=== PATIENT | female | born 1990 | race Caucasian/White ===

== ENCOUNTER 2022-10-29 16:42 | Emergency (ER) | payer OTHER ==
[~2022-10-29] VITALS: Ht 157.5 cm; Wt 74.0 kg
[~2022-10-29 16:42] MED LIST: [UNRECOGNIZED DRUG - REMARK]
[2022-10-29 16:51] VITALS: BP 133/80
[2022-10-29 18:02] LABS: APPEARANCE,URINE SL CLOUDY (CLEAR); BILIRUBIN,URINE NEGATIVE (NEGATIVE); BLOOD, URINE 3+ (NEGATIVE); COLOR,URINE ORANGE (YELLOW); LEUKOCYTE ESTERASE ,URINE 1+ (NEGATIVE); NITRITE, URINE NEGATIVE (NEGATIVE); PH,URINE 5.5 (5.0-9.0); UGLUCOSE NEGATIVE (NEGATIVE)
[2022-10-29 18:02] LABS: BASOPHILS # (AUTO) 0.1 K/uL (0.00-0.22); EOSINOPHILS # (AUTO) 0.1 K/uL (0-0.4); EOSINOPHILS % (AUTO) 1.9 % (0.0-4.0); HEMATOCRIT 36.8 % (36-48); HEMOGLOBIN 12.6 g/dL (12.0-16.0); LYMPHOCYTES # (AUTO) 2.6 K/uL (2.5-16.5); LYMPHOCYTES % (AUTO) 33.3 % (20.5-51.1); MEAN CORPUSCULAR HEMOGLOBIN 30 pg (27-31); MEAN CORPUSCULAR HGB CONC 34 g/dL (33-37); MEAN CORPUSCULAR VOLUME 86.4 fL (80-94); MONOCYTES # (AUTO) 0.6 K/uL (0.8-1.0); MONOCYTES % (AUTO) 7.2 % (1.7-9.3); NEUTROPHILS # (AUTO) 4.4 K/uL (1.8-7.7); NEUTROPHILS % (AUTO) 56.6 % (42.2-75.2); PLATELET COUNT (AUTO) 254 K/uL (140-450); RED BLOOD CELL COUNT(AUTO) 4.26 MIL/uL (4.20-5.40); RED CELL DISTRIBUTION WIDTH 13.3 % (11.6-13.7); WHITE BLOOD COUNT (AUTO) 7.7 K/uL (4.8-10.8)
[2022-10-29 18:16] LABS: ALBUMIN 3.7 g/dL (3.4-5.0); ANION GAP 13.3 (8-16); CARBON DIOXIDE 26.7 mmol/L (21-32); CREATININE 0.6 mg/dL (0.6-1.3); TOTAL BILIRUBIN 0.9 mg/dL (0.0-1.0)
[2022-10-29 18:16] LABS: RBC,URINE 11-20 (MOD) /HPF (0-5); TRICHOMONAS,URINE None Seen /HPF (None Seen); YEAST,URINE None Seen /HPF (None Seen)
[2022-10-29] MEDS ORDERED: OMEP20EC11 PO (18:34)
[2022-10-29] MEDS ORDERED: NITR100C7 PO (18:34)
--- NOTE | 2022-10-29 18:58 | NUR ---
Patient discharged with v/s stable. Written and verbal after care instructions given and explained. Patient alert, oriented and verbalized understanding of instructions. Ambulatory with steady gait. All questions addressed prior to discharge. ID band removed. Patient advised to follow up with PMD. Rx of MACROBID, PRILOSEC given. Patient educated on indication of medication including possible reaction and side effects. Opportunity to ask questions provided and answered.
== END 2022-10-29 18:58 | disposition home or self-care (01) ==
LOC: MED 16:42
DX: N39.0 Urinary tract infection, site not specified (principal); K76.0 Fatty (change of) liver, not elsewhere classified; D35.02 Benign neoplasm of left adrenal gland; K21.9 Gastro-esophageal reflux disease without esophagitis; Z90.49 Acquired absence of other specified parts of digestive tract; Z98.890 Other specified postprocedural states; Z79.899 Other long term (current) drug therapy
CPT/HCPCS: 36415; 80053; 81001; 81025; 83690; 85025; 87086; 99284

== ENCOUNTER 2023-03-20 18:47 | Emergency (ER) | payer OTHER ==
[~2023-03-20] VITALS: Ht 157.5 cm; Wt 75.3 kg
[~2023-03-20 18:47] MED LIST changes: +NITR100C7 PO; +OMEP20EC11 PO
[2023-03-20 19:00] VITALS: BP 120/70; PULSE 63; RESP 18; TEMP 97.5; O2SAT 100
[2023-03-20] MEDS ORDERED: ONDANSETRON 4 MG ODT PO ONE (19:40)
[2023-03-20 20:17] LABS: BASOPHILS # (AUTO) 0.1 K/uL (0.00-0.22); BASOPHILS % (AUTO) 0.5 % (0.0-2.0); EOSINOPHILS # (AUTO) 0.2 K/uL (0-0.4); EOSINOPHILS % (AUTO) 2.1 % (0.0-4.0); HEMATOCRIT 36.3 % (36-48); HEMOGLOBIN 12.5 g/dL (12.0-16.0); LYMPHOCYTES # (AUTO) 4.1 K/uL (2.5-16.5); LYMPHOCYTES % (AUTO) 41.6 % (20.5-51.1); MEAN CORPUSCULAR HEMOGLOBIN 30 pg (27-31); MEAN CORPUSCULAR HGB CONC 34 g/dL (33-37); MEAN CORPUSCULAR VOLUME 86.4 fL (80-94); MONOCYTES # (AUTO) 0.6 K/uL (0.8-1.0); MONOCYTES % (AUTO) 6.6 % (1.7-9.3); NEUTROPHILS # (AUTO) 4.8 K/uL (1.8-7.7); NEUTROPHILS % (AUTO) 49.2 % (42.2-75.2); PLATELET COUNT (AUTO) 262 K/uL (140-450); RED CELL DISTRIBUTION WIDTH 13.1 % (11.6-13.7); WHITE BLOOD COUNT (AUTO) 9.8 K/uL (4.8-10.8)
[2023-03-20 20:36] LABS: ALBUMIN 3.9 g/dL (3.4-5.0); ANION GAP 12.6 (8-16); CALCIUM 9.1 mg/dL (8.5-10.1); CREATININE 0.6 mg/dL (0.6-1.3); POTASSIUM 3.6 mmol/L (3.5-5.1); TOTAL BILIRUBIN 1.1 mg/dL (0.0-1.0); TOTAL PROTEIN, SERUM 7.4 g/dL (6.4-8.2)
[2023-03-20] MEDS ORDERED: OMEP40EC24 PO (20:46)
[2023-03-20] MEDS ORDERED: ONDA8TAB87 PO (20:46)
[2023-03-20 21:05] VITALS: BP 121/74; PULSE 87; RESP 18; TEMP 97; O2SAT 100
== END 2023-03-20 21:07 | disposition home or self-care (01) ==
LOC: MED 18:47
DX: R10.13 Epigastric pain (principal); R11.0 Nausea; Z98.890 Other specified postprocedural states; Z79.899 Other long term (current) drug therapy; Z79.2 Long term (current) use of antibiotics; Z88.5 Allergy status to narcotic agent
CPT/HCPCS: 36415; 80053; 83690; 85025; 99283; Q0162

== ENCOUNTER 2023-05-27 07:14 | Emergency (ER) | payer OTHER ==
[~2023-05-27] VITALS: Ht 144.8 cm; Wt 70.8 kg
[~2023-05-27 07:14] MED LIST changes: +OMEP40EC24 PO; +ONDA8TAB87 PO
[2023-05-27 07:31] VITALS: BP 122/72; PULSE 86; RESP 20; TEMP 98.4; O2SAT 100
[2023-05-27] MEDS ORDERED: AMOX1TAB8 PO (07:49)
[2023-05-27] MEDS ORDERED: IBUP-1842 PO (07:49)
[2023-05-27] MEDS ORDERED: ACET-10509 PO (07:49)
[2023-05-27] MEDS ORDERED: BISM262C53 PO (07:49)
[2023-05-27] MEDS ORDERED: ONDA-188 PO ×2 (08:06→11:26)
[2023-05-27 08:25] LABS: FLU B ANTIGEN negative (NEGATIVE)
[2023-05-27 08:28] LABS: FLU A ANTIGEN POSITIVE (NEGATIVE)
[2023-05-27] MEDS ORDERED: TAM75 PO (11:26)
== END 2023-05-27 08:07 | disposition home or self-care (01) ==
LOC: MED 07:14
DX: B34.9 Viral infection, unspecified (principal); Z20.822 Contact with and (suspected) exposure to COVID-19; Z79.899 Other long term (current) drug therapy
CPT/HCPCS: 81002; 81025; 99283